=== PATIENT | male | born 1985 | race Caucasian/White ===

== ENCOUNTER → 2020-12-18 11:44 | Outpatient (BNVA) | payer BC, SELFPAY | PROVIDERS: Family Provider Family Medicine; Visit Provider Family Medicine | DX: R50.9 Fever, unspecified (principal); Z20.822 Contact with and (suspected) exposure to COVID-19 | CPT/HCPCS: 87635 ==

== ENCOUNTER → 2021-05-04 11:57 | Outpatient (BNVA) | payer BC, SELFPAY | PROVIDERS: Family Provider Family Medicine; Visit Provider Nurse Practitioner Family | DX: R06.02 Shortness of breath (principal); I10 Essential (primary) hypertension; F41.9 Anxiety disorder, unspecified; F32.9 Major depressive disorder, single episode, unspecified; R60.9 Edema, unspecified | CPT/HCPCS: 80053; 80061; 84443; 85025 ==

== ENCOUNTER → 2021-07-20 15:07 | Outpatient (BNVA) | payer BC, SELFPAY | PROVIDERS: Family Provider Family Medicine; Visit Provider Nurse Practitioner Family | DX: Z20.822 Contact with and (suspected) exposure to COVID-19 (principal); Z11.52 Encounter for screening for COVID-19 | CPT/HCPCS: 87635 ==

== ENCOUNTER 2022-11-09 10:35 | Outpatient (CLI) | payer MEDICAID, SELFPAY ==
--- NOTE | 2022-11-09 10:47 | XR_ITS ---
WS: [email or web address] Exam: XR thoracic spine 3V* [id number] Date/Time of Exam: 11/09/2022 11:10 AM Reason For Exam: M54.9 - Dorsalgia, unspecified No fracture or dislocation noted. Disc spaces are preserved. No scoliosis. Normal paraspinal soft tis abbi structures. XR/XR thoracic spine 3V* [id number] IMPRESSION: 1. Unremarkable T-spine study.
--- NOTE | 2022-11-09 10:47 | XR_ITS ---
WS: [email or web address] Exam: XR lumbar spine 2-3V* [id number] Date/Time of Exam: 11/09/2022 11:10 AM Reason For Exam: M54.9 - Dorsalgia, unspecified No acute fracture or dislocation. Disc spaces are preserved. Posterior elements are intact. XR/XR lumbar spine 2-3V* [id number] IMPRESSION: 1. Normal lumbar spine study.
--- NOTE | 2022-11-09 10:47 | XR_ITS ---
WS: [email or web address] Exam: XR cervical spine 3V* [id number] Date/Time of Exam: 11/09/2022 11:10 AM Reason For Exam: M54.2 - Cervicalgia No acute fracture or dislocation. There is straightening. There is mild curvature with the right conv exity that may be positional. The odontoid is intact. Normal paraspinal soft tissue structures. XR/XR cervical spine 3V* [id number] IMPRESSION: 1. Straightening of the C-spine. There is also mild side bending with right con vexity that may be positional. 2. No fracture or malalignment.
== END 2022-11-09 10:36 | disposition home or self-care (01) ==
LOC: RAD 10:40
PROVIDERS: PCP Family Medicine; Visit Provider Family Medicine
DX: M54.2 Cervicalgia (principal); M54.50 Low back pain, unspecified; M54.6 Pain in thoracic spine
CPT/HCPCS: 72040; 72072; 72100

== ENCOUNTER 2022-12-13 06:00 | Outpatient (RCR) | payer MEDICAID, SELFPAY | END 2023-01-12 23:59 | disposition home or self-care (01) | LOC: TPT 06:00 | PROVIDERS: Visit Provider Family Medicine | DX: M54.2 Cervicalgia (principal) | CPT/HCPCS: 97110; 97140; 97162 ==

== ENCOUNTER 2023-01-13 06:00 | Outpatient (RCR) | payer MEDICAID, SELFPAY | END 2023-02-11 23:59 | disposition home or self-care (01) | LOC: TPT 06:00 | PROVIDERS: Visit Provider Family Medicine | DX: M54.2 Cervicalgia (principal) | CPT/HCPCS: 97110; 97140 ==

== ENCOUNTER 2023-02-12 06:00 | Outpatient (RCR) | payer MEDICAID, SELFPAY | END 2023-03-01 23:59 | disposition home or self-care (01) | LOC: TPT 06:00 | PROVIDERS: Visit Provider Family Medicine | DX: M54.2 Cervicalgia (principal); M54.9 Dorsalgia, unspecified | CPT/HCPCS: 97110; 97140; 97164 ==

== ENCOUNTER → 2025-05-23 11:59 | Outpatient (BNVA) | payer MEDICAID, SELFPAY | PROVIDERS: PCP Family Medicine; Visit Provider Family Medicine | DX: Z00.00 Encounter for general adult medical examination without abnormal findings (principal) | CPT/HCPCS: 80053; 80061; 83036; 85025 ==

== ENCOUNTER → 2025-05-28 14:04 | Outpatient (BNVA) | payer MEDICAID, SELFPAY | PROVIDERS: PCP Family Medicine; Visit Provider Family Medicine | DX: D69.6 Thrombocytopenia, unspecified (principal) | CPT/HCPCS: 85049 ==

== ENCOUNTER 2025-06-17 17:06 | Outpatient (CLI) | payer MEDICAID, SELFPAY ==
--- NOTE | 2025-06-17 17:09 | XR_ITS ---
WS: [email or web address] Thoracic spine, 3 views, 06/17/2025 Clinical Data: M54.9 - Dorsalgia, unspecified Comparison: Thoracic spine, 11/09/2022 Findings: The paravertebral regions are normal The disc spaces are not narrow. No osteoarthritis is present. No bone destruction or erosion is seen. XR/XR thoracic spine 3V* [id number] Impression: Negative thoracic spine.
--- NOTE | 2025-06-17 17:09 | XR_ITS ---
WS: [email or web address] Right knee, 3 views, 06/17/2025 Clinical Data: M25.561 - Pain in right knee Comparison: None. Findings: No new fractures or dislocations are seen. There is medial joint compartment narrowing. There is a fragment inferior to the tip of the patella which may represent an old ununited fracture or an apophysis. The soft tissues are unremarkable. XR/XR knee RT 3V* [id number] Impression: 1. Narrowing of medial joint compartment. 2. Accessory ossicle or an fused fragment of inferior right patella
--- NOTE | 2025-06-17 17:09 | XR_ITS ---
WS: [email or web address] Cervical spine, 3 views, 06/17/2025 Clinical Data: M54.2 - Cervicalgia Comparison: Cervical spine, 11/09/2022 Findings: No compression fractures are seen. The disc heights are normal. There is no prevertebral soft tissue swelling. The odontoid is unremarkable. The soft tissues of the neck and the lung apices are normal. XR/XR cervical spine 3V* [id number] Impression: Negative cervical spine.
--- NOTE | 2025-06-17 17:09 | XR_ITS ---
WS: [email or web address] Left knee, 3 views, 06/17/2025 Clinical Data: M25.561 - Pain in left knee Comparison: None. Findings: No new fractures or dislocations are seen. There is medial joint compartment narrowing. There is a spur of the lateral femoral condyle. There is a fragment inferior to the left patella which may represent an apophysis or an old fracture. The soft tissues are unremarkable. XR/XR knee LT 3V* [id number] Impression: 1. Medial joint compartment narrowing with spurring of the lateral femoral cond yle. 2. Unfused apophysis or possible old fracture at inferior aspect of left patell a.
--- NOTE | 2025-06-17 17:09 | XR_ITS ---
WS: [email or web address] Lumbar spine, AP and lateral views, 06/17/2025 Clinical Data: M54.50 - Low back pain, unspecified Comparison: Lumbar spine, 11/09/2022 Findings: No compression fractures or subluxation is seen. No disc space narrowing is seen. The transverse processes and SI joints are normal. XR/XR lumbar spine 2-3V* 52912 Impression: Negative lumbar spine.
== END 2025-06-17 17:07 | disposition home or self-care (01) ==
LOC: RAD 17:06
PROVIDERS: PCP Family Medicine; Visit Provider Family Medicine
DX: M54.9 Dorsalgia, unspecified (principal); G89.29 Other chronic pain; M25.561 Pain in right knee; M25.562 Pain in left knee; M54.2 Cervicalgia; M54.50 Low back pain, unspecified; M25.861 Other specified joint disorders, right knee; M22.8X1 Other disorders of patella, right knee; M25.852 Other specified joint disorders, left hip
CPT/HCPCS: 72040; 72072; 72100; 73562